=== PATIENT | female | born 1975 | race Caucasian/White ===

== ENCOUNTER 2018-05-13 07:45 | Day surgery (SDC) | payer OTHER ==
[2018-05-10 18:31] LABS: HCG,QUAL RESULT NEGATIVE (NEGATIVE)
[~2018-05-13] VITALS: Ht 162.6 cm; Wt 65.8 kg
[~2018-05-13 07:45] MED LIST: CEFAZOLIN SOD 1 GM/ ISO 50 ML PREMIX IV ONE
[2018-05-13] MEDS ORDERED: DEXAMETHASONE SOD PHOSPHATE 4 MG/ML VIAL IVP ONE (12:40)
[2018-05-13] MEDS ORDERED: MIDAZOLAM HCL 5 MG/5 ML VIAL IVP ONE (12:40)
[2018-05-13] MEDS ORDERED: ISOSULFAN BLUE 5 ML VIAL (LYMPHAZURIN) INJ ONE (12:40)
[2018-05-13] MEDS ORDERED: PROPOFOL 200MG/ 20ML VIAL (DIPRIVAN) IV ONE (12:40)
[2018-05-13] MEDS ORDERED: fentaNYL CITRATE 250 MCG/5 ML AMP IV ONE (12:40)
[2018-05-13] MEDS ORDERED: BUPIVACAINE /PF 0.25% 30 ML VIAL INJ ONE (12:40)
[2018-05-13] MEDS ORDERED: LR 1,000 ML IV.SOLN IV ONE (12:40)
[2018-05-13] MEDS ORDERED: SEVOFLURANE 15 MIN GAS INH ONE (12:40)
[2018-05-13] MEDS ORDERED: ONDANSETRON HCL 4 MG/2 ML VIAL IVP ONE (12:40)
[2018-05-13] MEDS ORDERED: KETOROLAC TROMETHAMINE 30 MG VIAL IVP ONE (12:40)
[2018-05-13] MEDS ORDERED: NS IRRIG SOLN 1000 ML IR ONE (12:40)
[2018-05-13] MEDS ORDERED: ROCURONIUM BROMIDE 10 MG/ML (ZEMURON) IV ONE (12:40)
[2018-05-13] MEDS ORDERED: LR 1,000 ML IV SCH (13:29)
[2018-05-13] MEDS ORDERED: HYDROmorphone 1 MG INJ. 1 MG/ML AMPUL IVP PRN ×2 (13:30→14:30)
[2018-05-13] MEDS ORDERED: HYDROmorphone 2 MG/ML VIAL IVP PRN ×2 (13:30)
[2018-05-13] MEDS ORDERED: MEPERIDINE HCL/PF 25 MG/ML DISP.SYRIN IVP PRN (13:30)
[2018-05-13] MEDS ORDERED: D5/0.45 NS 1,000 ML IV SCH (14:20)
[2018-05-13] MEDS ORDERED: HYDROcodone/ACETAMIN 5-325 MG TAB (NORCO/ VICODIN) PO PRN ×2 (14:30)
[2018-05-13 16:44] VITALS: BP_SYST 118
== END 2018-05-13 14:27 | disposition home or self-care (01) ==
LOC: SDS 07:45 → SMU 07:45 → SDS 14:27
PROVIDERS: ATTEND Colon & Rectal Surgery
DX: D36.0 Benign neoplasm of lymph nodes (principal); D23.5 Other benign neoplasm of skin of trunk; E55.9 Vitamin D deficiency, unspecified; L98.9 Disorder of the skin and subcutaneous tissue, unspecified; Z98.890 Other specified postprocedural states; Z79.899 Other long term (current) drug therapy; Z83.3 Family history of diabetes mellitus; Z98.51 Tubal ligation status
CPT/HCPCS: 11406; 12034; 38531; 78195; 84703; 88305; 88307; 88341; 88342; A9541; J0690; J1100; J1885; J2250; J2405; J2704; J3010; J3490; J7120; Q9968